=== PATIENT | female | born 1950 | race Caucasian/White ===

== ENCOUNTER 2019-02-19 10:44 | Inpatient (IN) | payer MEDICARE, BC ==
[2019-02-18 18:04] VITALS: Ht 149.9 cm; Wt 65.0 kg
[~2019-02-19] VITALS: Ht 149.9 cm; Wt 65.0 kg
[2019-02-19] VITALS (18 sets, daily range): BP systolic 94–143; BP diastolic 59–79; PULSE 68–90; RESP 13–22
[~2019-02-19 10:44] MED LIST: ACET325T33 PO; FLUO10CA26 PO; LOSA1TAB22 ORAL; METR500T PO
[2019-02-19] MEDS ORDERED: CEFAZOLIN 2 GM/50 ML (PMX) 50 ML IVPB ONE (11:00)
--- NOTE | 2019-02-19 11:56 | PREAC ---
Date/Time of Note Date/Time of Note DATE: 02/19/19 TIME: 11:52 Anesthesia Eval and Record Evaluation Time Pre-Procedure Interview DATE: 02/19/19 TIME: 11:52 Age 69 Sex female NPO: 8 hrs Preoperative diagnosis S/P colostomy, ventral hernia Planned procedure Laparoscopic vs open colostomy takedowm, ventral hernia repair, rigid sigmoidoscopy, possible biologic implantation Past Medical History Past Medical History: Includes Cardio: HTN Psych: Depression Surgery & Anesthesia Issues No known issue Meds Anticoagulation: No Beta Ave within 24 hr: No Reason Beta Ave not given: Pt. not on B-Ave Reported Medications Fluoxetine Hcl* (Prozac*) 10 Mg Capsule, 10 MG PO DAILY, CAP 02/19/19 Losartan-Hydrochlorothiazide (Losartan-HCTZ) 50-12.5 Mg Tab, 2 TAB ORAL DAILY 02/19/19 Meds reviewed: Yes Allergies Coded Allergies: vancomycin (Verified Allergy, Mild, ITCHINESS, 02/19/19) Allergies Reviewed: Yes Labs/Studies Labs Reviewed: Reviewed by anesthesiologist test: N/A Pre-procedure Exam Airway: Adequate mouth opening Mallampati: Mallampati I Teeth: Normal Lung: Normal Heart: Normal ASA Physical Status ASA physical status: 2 Emergency: None Planned Anesthetic General/MAC: ETT Planned Pain Management Parenteral pain med Pre-operative Attestations Prior to commencing anesthesia and surgery, the patient was re-evaluated, there was verification of: *The patient's identity *The results of appropriate recent lab work and preoperative vital signs *The above evaluation not changing prior to induction *Anesthetic plan, risk benefits, alternative and complications discussed with patient/family; questions answered; patient/family understands, accepts and wishes to proceed. LINO MELENDEZ MD Feb 19, 2019 11:56
--- NOTE | 2019-02-19 13:24 | HPN ---
Date/Time of Note Date/Time of Note DATE: 02/19/19 TIME: 13:24 Interval H&P Admission Note Pt. seen H&P reviewed: No system changes MANUEL PISANO MD Feb 19, 2019 13:24
[2019-02-19] MEDS ORDERED: SUCCINYLCHOLINE CHLORIDE 100 MG/5 ML SYG IV ONE (13:32)
[2019-02-19] MEDS ORDERED: LIDOCAINE 2% (SDV) 5 ML INJ ONE (13:32)
[2019-02-19] MEDS ORDERED: GLYCOPYRROLATE 0.4 MG INJ ONE ×2 (13:32→16:07)
[2019-02-19] MEDS ORDERED: NEOSTIGMINE 3 MG/3 ML SYRINGE ONE (13:33)
[2019-02-19] MEDS ORDERED: ROCURONIUM 50 MG INJ ONE ×2 (13:33→15:59)
[2019-02-19] MEDS ORDERED: PROPOFOL 20 ML ONE (13:33)
[2019-02-19] MEDS ORDERED: MEPERIDINE 100 MG INJ ONE (13:33)
[2019-02-19] MEDS ORDERED: BUPIVACAINE 0.25%/EPI (SDV) 30 ML INJ ONE (14:33)
[2019-02-19] MEDS ORDERED: LIDOCAINE 1% (MPF) 30 ML INJ ONE (14:33)
[2019-02-19] MEDS ORDERED: metroNIDAZOLE 500 MG/NS (PMX) 100 ML IVPB ONE (14:40)
[2019-02-19] MEDS ORDERED: MEPERIDINE 25 MG INJ IV PRN (15:00)
[2019-02-19] MEDS ORDERED: HYDROmorphONE 1 MG/5 ML IV SYRINGE IV PRN ×3 (15:00)
[2019-02-19] MEDS ORDERED: ONDANSETRON 4 MG INJ IV PRN ×2 (15:00→17:30)
[2019-02-19] MEDS ORDERED: FENTAnyl 50 MCG/ML VIAL IV PRN ×2 (15:00)
[2019-02-19] MEDS ORDERED: METOCLOPRAMIDE 10 MG INJ IV PRN (15:00)
[2019-02-19] MEDS ORDERED: hydrALAzine 20 MG INJ IV PRN (15:00)
[2019-02-19] MEDS ORDERED: MIDAZOLAM 1 MG/ML 2 ML INJ IV PRN (15:00)
[2019-02-19] MEDS ORDERED: EPHEDrine 25 MG/5 ML SYG IV PRN (15:00)
[2019-02-19] MEDS ORDERED: DIPHENHYDRAMINE 50 MG INJ IV PRN (15:00)
[2019-02-19] MEDS ORDERED: LABETALOL HCL 20MG INJ IV PRN (15:00)
[2019-02-19] MEDS ORDERED: METOCLOPRAMIDE 10 MG INJ ONE (16:08)
[2019-02-19] MEDS ORDERED: ONDANSETRON 4 MG INJ ONE (16:08)
[2019-02-19] MEDS ORDERED: ACETAMINOPHEN 325 MG TAB PO PRN (17:30)
[2019-02-19] MEDS ORDERED: IBUPROFEN 600 MG TAB PO PRN (17:30)
--- NOTE | 2019-02-19 17:48 | OPR ---
Date/Time of Note Date/Time of Note DATE: 02/19/19 TIME: 17:18 Operative Report Free Text/Dictation Preoperative Diagnosis: 1. Colostomy state 2. History of colorectal perforation 3. BMI 29 4. Ventral incisional hernia 5. Parastomal hernia Postoperative Diagnosis: 1. Colostomy state 2. History of colorectal perforation 3. BMI 29 4. Very large ventral incisional hernia 5. Parastomal hernia 6. Stool balls in the rectal vault Operation Performed: 1. Laparoscopic colostomy reversal/takedown 2. Laparoscopic splenic mobilization 3. Laparoscopic low colo-distal rectal anastomosis 4. Laparoscopic partial left colectomy 5. Rigid sigmoidoscopy 6. Laparoscopic partial omentectomy 7. Repair of parastomal hernia 8. Local anesthetic injection, [id number] 9. Laparoscopic bilateral transversus abdominis plane block 10. Manual disimpaction Surgeon: MANUEL PISANO MD Union Representative: Mode Arndt MD Second Union Representative: Fara Huynh NP Anesthesia: general + local + regional Anesthesiologist: MIRTA Delvalle MD Estimated Blood Loss: 100 ml's Specimens: 1. Anastomotic rings 2. Distal colon/colostomy edge 3. Proximal rectum 4. Partial omentum Tubes/Drains: 19 Japanese Quinten Complications: None Pt Condition Post Procedure: stable Disposition: PACU Indications 69-year-old female with multiple comorbidities with history of colorectal perforation requiring colostomy. Patient is now here for colostomy reversal. Risks include but are not limited to bleeding, infection, abscess, seroma, leak, damage to intestines or any intra-abdominal/intrapelvic structures, hernia formation, chronic pain, need for re-operations or further surgeries, PA, stroke, PE, DVT, pneumonia, organ failures, or even . Procedure Description: Patient was brought into the operating room, placed supine on the operating table, SCDs were placed, right arm was tucked, all pressure points were well- padded, preoperative antibiotics administered, and after induction of anesthesia, patient was placed in the lithotomy. San was inserted. Patient was then prepped and draped in usual sterile fashion, and timeout was performed. Incision was made in the right upper quadrant, and using an Optiview port and 5 mm 0 scope abdomen was safely entered and insufflated to 15 mmHg with CO2. Laparoscopy was performed and no injuries were identified. There was adhesions of the omentum to wall and small bowel, small bowel to colostomy. Under direct visualization another 5 mm port was placed in the right lower quadrant a 12 mm port was placed in the right lower lateral quadrant. Patient was placed in Tr endelenburg and left side up. Pelvis was investigated. There was some small bowel adhesions to the pelvic wall. Those were taken down sharply without any injury. The adhesions of small bowel to the colostomy were also taken down. Part of the omentum was also very long skinny and and risk of torsion. Therefore partial omentectomy was performed with LigaSure and that specimen was removed. Rigid sigmoidoscopy was performed and the rectal stump was investigated. The scope and the dilators could not pass a distal point in the rectum. Decision was made to transect this area. Using [employer] 60 blue load stapler the distal rectum was transected and exteriorized and sent to pathology. There was few stool hard balls there which were removed manually. The vaginal cuff and the bladder were easily off of the rectal stump. The rectal stump did not feel thickened. The colostomy edge was cut away from the skin using electrocautery and with gentle dissection the distal colon was from the subcutaneous tissue and then the fascia and peritoneum circumferentially preserving the entire colon. Hemostasis was obtained. Automatic pursestring suture device was used on the healthy distal colon and then unhealthy distal colon was transected and sent to pathology. EEA 29 anvil was placed into the distal colon and secured with the previously placed pursestring suture. Care was taken to put back the EEA anvil and the distal colon back into the abdomen under direct visualization. The fascia of this parastomal hernia was closed with #1 looped PDS sutures x2. At this point the proximal colon was not sufficiently reaching the rectal stump in the pelvis to allow tension free anastamosis. Decision was made to proceed with splenic mobilization. Using sharp dissection and energy device I was able to mobilize the proximal descending colon further from the abdominal wall and the spleen. The omentum was taken off the splenic flexure and the splenic flexure was further mobilized inferiorly. After full mobilization of the splenic flexure we were able to obtain sufficient length for the anastomosis without any tension. EEA stapler was placed through the rectum into the rectal stump under direct visualization. The needle was opened through the rectal stump and the anvil was attached to the needle and full circular stapled anastomosis was created. After removal of the EEA full doughnuts 2 were identified. Proximal colon was clamped and using a rigid sigmoidoscope and air was insufflated into the rectum with distention of the anastomotic site under saline in the pelvis without any air bubbles leaking. Rigid sigmoidoscopy was performed up to 15 cm with healthy stapled anastomosis without any active bleeding. Fluid was suctioned out.Small bowel was ran from terminal ileum to augment of Treitz without any twisting or further scarring. The bowel was laid flat in the abdomen and pelvis. 12 m port site fascia was closed with Endo Close and 0 Vicryl in a [id number] manner. There was complete hemostasis. Ports and CO2 were removed under direct visualization. Wounds were thoroughly irrigated and skin was closed with 4-0 Monocryl subcuticular fashion. Dermabond was applied. The colostomy site wound was closed in multiple layers. Fascial defect was closed with #1 looped PDS suture x2. Subcutaneous tissue was closed in multiple layers with interrupted 2-0 Vicryl suture. There was irrigation with saline and Betadine between each closing layer. Skin was stapled loosely and then 4 x 4 and tape were applied to the surface of this wound. All counts were correct and the end of the operation 2. Patient was extubated and transferred to recovery room in stable condition. MANUEL PISANO MD Feb 19, 2019 17:48
[2019-02-19] MEDS: FENTAnyl 50 MCG/ML VIAL IV PRN ×2 (18:28→18:38)
[2019-02-19] MEDS: SOD CHLORIDE 0.9% 1,000 ML IV SCH (19:35)
--- NOTE | 2019-02-19 19:57 | PAC ---
Date/Time of Note Date/Time of Note DATE: 02/19/19 TIME: 19:56 Post-Anesthesia Notes Post-Anesthesia Note Last documented vital signs Vital Signs Date Temp Pulse Resp B/P (MAP) Pulse Ox O2 O2 Flow FiO2 Time Delivery Rate 02/19/19 74 14 117/79 99 Room Air 19:20 (92) 02/19/19 6.0 17:40 02/19/19 98.0 17:34 Activity: WNL Respiratory function: WNL Cardiovascular function: WNL Mental status: Baseline Pain reasonably controlled: Yes Hydration appropriate: Yes Nausea/Vomiting absent: Yes Comments BT: 98.4 LINO MELENDEZ MD Feb 19, 2019 19:57
[2019-02-19] MEDS: LOSARTAN 50 MG TAB PO SCH (22:56)
[2019-02-19] MEDS: morphine 2 MG INJ IV PRN (23:05)
--- NOTE | 2019-02-19 23:33 | CONS ---
DATE OF ADMISSION: 02/19/2019 DATE OF CONSULTATION: 02/19/2019 TYPE OF CONSULTATION: Postoperative medical. Thank you very much for allowing me to evaluate the above patient who just underwent a colostomy take down. HISTORICAL EVENTS: As you indicated to me earlier this patient in 2018 did have a perforated diverti culum that required surgical intervention and creation of a colostomy. It was today that you elected to perform a colostomy takedown. The delay in this, in part related to her obesity. A large ventra l hernia was also noted, but it was felt that this should be addressed later. She presently is somno lent in the recovery room, complaining of some mild abdominal pain, but has no chest pain, shortness of breath, or vomiting. PAST MEDICAL HISTORY: Includes: 1. History of aortic ectasia. 2. Hypertension. 3. Depression. 4. Left knee pain. 5. History Clostridia difficile colitis. 6. Known diverticulosis. 7. History of rectocele. FAMILY HISTORY: Positive for coronary artery disease and hyperlipidemia. SOCIAL HISTORY: She works for [employer]. She was a former smoker. MEDICATIONS: Prior to admission include: 1. Ibuprofen 2. Losartan 100 mg per day. 3. Hydrochlorothiazide 12.5 per day. 4. Klonopin 0.5 as needed. 5. Lexapro 10 mg. 6. Iron b.i.d. ALLERGIES: MORPHINE. PHYSICAL EXAMINATION: GENERAL: Elderly female in no acute distress. VITAL SIGNS: BP 118/78, pulse 72, respirations were 18. She was afebrile. EYES: Extraocular muscles were full. NOSE, MOUTH, AND THROAT: Normal. NECK: Supple. There was no jugular venous distention, thyroid enlargement or adenopathy. LUNGS: Clear. HEART: Rhythm regular, no murmur. No third or fourth sound. ABDOMEN: Distended, slightly tender. EXTREMITIES: No edema, no calf tenderness. NEUROLOGIC: No lateralizing motor weakness. IMPRESSION: 1. Postoperative colostomy closure, stable. 2. History of hypertension. Will resume BP meds. 3. Will need deep venous thrombosis prophylaxis. SCDs for this evening and Lovenox when you think a ppropriate. 4. Mood disorder. We will explore this tomorrow when she is more alert. I will follow with you. Dictated By: DANIELLE MYERS MD MR/NTS Conf#: [id number] DID#: [id number] CC: MANUEL PISANO MD;*[facility]*
[2019-02-20] MEDS: morphine 2 MG INJ IV PRN ×2 (04:07→08:33)
[2019-02-20 08:25] VITALS: BP 129/95; PULSE 94; RESP 18
[2019-02-20] MEDS: SOD CHLORIDE 0.9% 1,000 ML IV SCH ×2 (08:32→23:05)
[2019-02-20] MEDS: LOSARTAN 50 MG TAB PO SCH (08:33)
[2019-02-20] MEDS: FLUOXETINE 10 MG CAP PO SCH (08:33)
--- NOTE | 2019-02-20 11:13 | CONS ---
Assessment/Plan Assessment/Plan Assessment/Plan (Daily) 1. Postoperative colostomy closure, stable 2. History of hypertension, controlled 3. DVT prophylaxis per surgery 4. Mood disorder, stable Consultation Date/Type/Reason Admit Date/Time Feb 19, 2019 at 17:41 Initial Consult Date Date/Time of Note DATE: 02/20/19 TIME: 11:11 Detailed Summary Respiratory: No cough, No shortness of breath Cardiovascular: No chest pain Gastrointestinal: other (mild bloating and abd discomfort); No vomiting Neurologic: No confusion, No headache Exam/Review of Systems Exam Vitals Vital Signs Date Temp Pulse Resp B/P (MAP) Pulse Ox O2 O2 Flow FiO2 Time Delivery Rate 02/20/19 99.8 94 18 129/95 97 08:25 (106) 02/19/19 Room Air 23:15 02/19/19 6.0 17:40 Intake and Output 02/19/19 02/19/19 02/20/19 1515:00 23:00 07:00 IntakeIntake Total 2100 ml 1180 ml OutputOutput Total 350 ml 970 ml BalanceBalance 1750 ml 210 ml Neck: No jvd Respiratory: clear to auscultation Cardiovascular: regular rate and rhythm Gastrointestinal: distended (sl tend) Results Result Diagram: 02/20/19 0422 02/20/19 0422 Results 24hrs Laboratory Tests Test 02/20/19 04:22 02/20/19 08:04 White Blood Count 11.0 H Red Blood Count 4.01 L Hemoglobin 12.3 Hematocrit 36.8 L Mean Corpuscular Volume 91.8 Mean Corpuscular Hemoglobin 30.7 Mean Corpuscular Hemoglobin Concent 33.4 Red Cell Distribution Width 13.5 Platelet Count 318 Mean Platelet Volume 9.5 Immature Granulocytes % 0.300 Neutrophils % 75.6 Lymphocytes % 14.9 L Monocytes % 8.8 Eosinophils % 0.2 Basophils % 0.2 Nucleated Red Blood Cells % 0.0 Immature Granulocytes # 0.030 Neutrophils # 8.3 H Lymphocytes # 1.6 Monocytes # 1.0 H Eosinophils # 0.0 Basophils # 0.0 Nucleated Red Blood Cells # 0.0 Sodium Level 137 Potassium Level 3.4 L Chloride Level 104 Carbon Dioxide Level 26 Anion Gap 7 Blood Urea Nitrogen 12 Creatinine 0.67 Est Glomerular Filtrat Rate mL/min > 60 Glucose Level 122 Calcium Level 8.4 Phosphorus Level 3.3 Magnesium Level 1.8 Lab Scanned Report REFERENCE LAB Medications Medication Current Medications Morphine Sulfate (morphine) 2 mg Q2H PRN IV breakthrough pain Last administered on 02/20/19 08:33; Admin Dose 2 MG; Start 02/19/19 at 17:30 Acetaminophen/ Hydrocodone Bitart ([place] (5/325)) 1 tab Q6H PRN PO PAIN LEVEL 6-10; Start 02/19/19 at 17:30 Acetaminophen (Tylenol Tab) 650 mg Q6H PRN PO MILD PAIN(1-3)OR ELEVATED TEMP; Start 02/19/19 at 17:30 Ibuprofen (Motrin) 600 mg Q6H PRN PO PAIN LEVEL 1-5; Start 02/19/19 at 17:30 Ondansetron HCl (Zofran Inj) 4 mg Q6H PRN IV NAUSEA AND/OR VOMITING; Start 02/19/19 at 17:30 Fluoxetine HCl (Prozac) 10 mg DAILY PO Last administered on 02/20/19 08:33; Admin Dose 10 MG; Start 02/20/19 at 09:00 Losartan Potassium (Cozaar) 50 mg DAILY PO Last administered on 02/20/19 08:33; Admin Dose 50 MG; Start 02/19/19 at 23:00 Sodium Chloride 1,000 ml @ 70 mls/hr [id number] IV Last administered on 02/20/19 08:32; Admin Dose 70 MLS/HR; Start 02/19/19 at 18:00 DANIELLE MYERS MD Feb 20, 2019 11:13
[2019-02-20] MEDS: POTASSIUM CHLORIDE (SR) 20 MEQ TAB PO SCH ×2 (12:20→20:48)
[2019-02-20 14:46] VITALS: BP 146/76; PULSE 85; RESP 18
[2019-02-20] MEDS: HYDROCODONE/APAP (5/325) TAB PO PRN ×2 (15:37→23:07)
[2019-02-20 21:12] VITALS: BP 136/79; PULSE 90; RESP 20
--- NOTE | 2019-02-20 23:50 | PN ---
Date/Time of Note Date/Time of Note DATE: 02/20/19 TIME: 23:49 Assessment/Plan Lines/Catheters IV Catheter Type (from Nrsg): Peripheral IV Assessment/Plan Chief Complaint/Hosp Course 1. Abdominal pain s/p lap colostomy takedown 02/19 -ice -pain control -IS 2. Paralytic ileus -chew gum -oob/ambulate -minimize narcotics 3. BMI 29 -eventual diet optimization -eventual exercise 4. HTN -diet/med optimization -weight loss encouraged 5. Hypokalemia -replete 6. Mild leukocytosis, reactive -monitor 7. DVT prophylaxis with serosang mary output -scds -oob/ambulate -hold off anticoagulation for now Thank you, Subjective 24 Hr Interval Summary Min pain. No flatus or bm. Nausea but no vomiting. Clears. No cp/sob. No cough. No sz. No bleeding. No dysuria. San removed this am and able to urinate well. Labs noted. Low grade temp earlier. No chills. Ambulated minimally today. Not using IS correctly. Exam/Review of Systems Vital Signs Vitals Vital Signs Date Temp Pulse Resp B/P (MAP) Pulse Ox O2 O2 Flow FiO2 Time Delivery Rate 02/20/19 98.5 90 20 136/79 96 21:12 (98) 02/19/19 Room Air 23:15 02/19/19 6.0 17:40 Intake and Output 02/20/19 02/20/19 02/21/19 1515:00 23:00 07:00 IntakeIntake Total 900 ml 630 ml OutputOutput Total 350 ml BalanceBalance 550 ml 630 ml Exam Constitutional: alert, oriented, obese; No distress Psych: nl mood/affect Head: normocephalic, atraumatic Eyes: nl conjunctiva, EOMI, PERRL; No icteric ENMT: nl external ears & nose, nl lips & teeth, mucosa pink and moist Neck: supple, non-tender; No jvd Respiratory: normal air movement; No congested cough, No labored breathing, No wheezing Cardiovascular: regular rate and rhythm; No edema Gastrointestinal: soft, distended, tender, other (MARY serosang; LLQ wound with dressing;); No rebound or guarding Musculoskeletal: nl extremities to inspection; No joint tenderness Extremities: normal pulses; No calf tenderness, No edema Neurological: nl mental status, nl speech, nl strength Skin: nl turgor; No rash or lesions, No diaphoresis Lymph: nl lymph nodes Results Result Diagram: 02/20/1942102/20/19 042 MANUEL PISANO MD Feb 20, 2019 23:50
[2019-02-21 02:43] VITALS: BP 150/86; PULSE 88; RESP 18
[2019-02-21] MEDS: morphine 2 MG INJ IV PRN (05:00)
[2019-02-21 07:37] VITALS: BP 135/86; PULSE 87; RESP 16
[2019-02-21] MEDS: FLUOXETINE 10 MG CAP PO SCH (09:24)
[2019-02-21] MEDS: LOSARTAN 50 MG TAB PO SCH ×2 (09:25→20:16)
[2019-02-21] MEDS: ENOXAPARIN 40 MG/0.4 ML SYG SC SCH (11:00)
--- NOTE | 2019-02-21 11:05 | CONS ---
Assessment/Plan Assessment/Plan Assessment/Plan (Daily) 1. Post op colostomy closure, with unchanged distension and pain. 2. BP is elevated, meds adjusted 3. DVT prophylaxis, Lovenox if ok with surgery 4. P is low, will replete 5. Dizziness with standing without orthostatic changes, will observe Consultation Date/Type/Reason Admit Date/Time Feb 19, 2019 at 17:41 Initial Consult Date Date/Time of Note DATE: 02/21/19 TIME: 10:59 Detailed Summary Respiratory: No cough, No pleuritic pain, No shortness of breath Cardiovascular: lightheadedness (when standing and dizzy); No chest pain Gastrointestinal: pain (moderate and nausea, no flatus or bm yet) Genitourinary: no complaints Neurologic: No headache Exam/Review of Systems Exam Vitals Vital Signs Date Temp Pulse Resp B/P (MAP) Pulse Ox O2 O2 Flow FiO2 Time Delivery Rate 02/21/19 98.3 87 16 135/86 94 07:37 (102) 02/19/19 Room Air 23:15 02/19/19 6.0 17:40 Intake and Output 02/20/19 02/20/19 02/21/19 1515:00 23:00 07:00 IntakeIntake Total 900 ml 630 ml 1010 ml OutputOutput Total 350 ml 25 ml BalanceBalance 550 ml 605 ml 1010 ml Neck: No jvd Respiratory: clear to auscultation Cardiovascular: regular rate and rhythm Gastrointestinal: distended (rare bs and gen tender (1-2+) Extremities: No edema, No tenderness Results Result Diagram: 02/21/19 0427 02/21/19 0427 Results 24hrs Laboratory Tests Test 02/21/19 04:27 White Blood Count 13.2 H Red Blood Count 4.56 Hemoglobin 13.9 Hematocrit 41.5 Mean Corpuscular Volume 91.0 Mean Corpuscular Hemoglobin 30.5 Mean Corpuscular Hemoglobin Concent 33.5 Red Cell Distribution Width 13.2 Platelet Count 333 Mean Platelet Volume 9.4 Immature Granulocytes % 0.500 H Neutrophils % 84.3 H Lymphocytes % 8.3 L Monocytes % 6.2 Eosinophils % 0.5 Basophils % 0.2 Nucleated Red Blood Cells % 0.0 Immature Granulocytes # 0.070 H Neutrophils # 11.1 H Lymphocytes # 1.1 Monocytes # 0.8 Eosinophils # 0.1 Basophils # 0.0 Nucleated Red Blood Cells # 0.0 Sodium Level 137 Potassium Level 3.6 Chloride Level 102 Carbon Dioxide Level 27 Anion Gap 8 Blood Urea Nitrogen 6 L Creatinine 0.55 Est Glomerular Filtrat Rate mL/min > 60 Glucose Level 135 Calcium Level 9.1 Phosphorus Level 1.7 #L Magnesium Level 2.1 Medications Medication Current Medications Morphine Sulfate (morphine) 2 mg Q2H PRN IV breakthrough pain Last administered on 02/21/19 05:00; Admin Dose 2 MG; Start 02/19/19 at 17:30 Acetaminophen/ Hydrocodone Bitart ([place] (5/325)) 1 tab Q6H PRN PO PAIN LEVEL 6-10 Last administered on 02/20/19 23:07; Admin Dose 1 TAB; Start 02/19/19 at 17:30 Acetaminophen (Tylenol Tab) 650 mg Q6H PRN PO MILD PAIN(1-3)OR ELEVATED TEMP; Start 02/19/19 at 17:30 Ibuprofen (Motrin) 600 mg Q6H PRN PO PAIN LEVEL 1-5; Start 02/19/19 at 17:30 Ondansetron HCl (Zofran Inj) 4 mg Q6H PRN IV NAUSEA AND/OR VOMITING Last administered on 02/21/19 05:00; Admin Dose 4 MG; Start 02/19/19 at 17:30 Fluoxetine HCl (Prozac) 10 mg DAILY PO Last administered on 02/21/19 09:24; Admin Dose 10 MG; Start 02/20/19 at 09:00 Losartan Potassium (Cozaar) 50 mg DAILY PO Last administered on 02/21/19 09:25; Admin Dose 50 MG; Start 02/19/19 at 23:00 Sodium Chloride 1,000 ml @ 40 mls/hr Q24H IV Last administered on 02/20/19 23:05; Admin Dose 40 MLS/HR; Start 02/19/19 at 18:00 Metoclopramide HCl (Reglan) 5 mg Q6 IV ; Start 02/21/19 at 12:00 DANIELLE MYERS MD Feb 21, 2019 11:05
[2019-02-21] MEDS ORDERED: POTASSIUM PHOSPHATE 20 MEQ in SOD CHLORIDE 0.9% 250 ML IVPB ONE (11:45)
[2019-02-21] MEDS: METOCLOPRAMIDE 10 MG INJ IV SCH ×2 (12:41→18:22)
[2019-02-21 14:05] VITALS: BP 155/85; PULSE 88; PULSE 91; RESP 18
[2019-02-21] MEDS: HYDROCODONE/APAP (5/325) TAB PO PRN ×2 (14:14→21:26)
[2019-02-21 20:01] VITALS: BP 114/76; PULSE 87; RESP 18
--- NOTE | 2019-02-21 21:08 | PN ---
Date/Time of Note Date/Time of Note DATE: 02/21/19 TIME: 21:06 Assessment/Plan Lines/Catheters IV Catheter Type (from Nrsg): Peripheral IV San in Place (from Nrs): No Assessment/Plan Chief Complaint/Hosp Course 1. Abdominal pain s/p lap colostomy takedown 02/19 -ice -pain control -IS 2. Paralytic ileus, ? slowly improving -chew gum -oob/ambulate -minimize narcotics 3. BMI 29 -eventual diet optimization -eventual exercise 4. HTN -diet/med optimization -weight loss encouraged 5. Hypokalemia -replete 6. Mild leukocytosis, reactive -monitor 7. DVT prophylaxis on hold with serosang mary output -scds -oob/ambulate -hold off anticoagulation for now Thank you, Subjective 24 Hr Interval Summary Min pain. Min flatus today. No bm. Mild increase in wbc. Nausea but no vomiting. Clears. No cp/sob. No cough. No sz. No bleeding. No dysuria. Labs noted. No fevers, nor chills. Exam/Review of Systems Vital Signs Vitals Vital Signs Date Temp Pulse Resp B/P (MAP) Pulse Ox O2 O2 Flow FiO2 Time Delivery Rate 02/21/19 98.0 87 18 114/76 100 Room Air 20:01 (89) 02/19/19 6.0 17:40 Intake and Output 02/20/19 02/20/19 02/21/19 1515:00 23:00 07:00 IntakeIntake Total 900 ml 630 ml 1010 ml OutputOutput Total 350 ml 25 ml BalanceBalance 550 ml 605 ml 1010 ml Exam Free Text/Dictation Constitutional: alert, oriented, obese; No distress Psych: nl mood/affect Head: normocephalic, atraumatic Eyes: nl conjunctiva, EOMI, PERRL; No icteric ENMT: nl external ears & nose, nl lips & teeth, mucosa pink and moist Neck: supple, non-tender; No jvd Respiratory: normal air movement; No congested cough, No labored breathing, No wheezing Cardiovascular: regular rate and rhythm; No edema Gastrointestinal: soft, distended, tender, other (MARY serosang; LLQ wound with dressing;); No rebound or guarding Musculoskeletal: nl extremities to inspection; No joint tenderness Extremities: normal pulses; No calf tenderness, No edema Neurological: nl mental status, nl speech, nl strength Skin: nl turgor; No rash or lesions, No diaphoresis Lymph: nl lymph nodes Results Result Diagram: 02/21/19 0427 02/21/19 0427 MANUEL PISANO MD Feb 21, 2019 21:08
[2019-02-22] MEDS: METOCLOPRAMIDE 10 MG INJ IV SCH ×4 (00:03→17:39)
[2019-02-22 01:48] VITALS: BP 123/78; PULSE 85; RESP 16
[2019-02-22] MEDS: morphine 2 MG INJ IV PRN ×5 (04:59→22:30)
[2019-02-22 08:34] VITALS: BP 113/63
[2019-02-22] MEDS: LOSARTAN 50 MG TAB PO SCH ×2 (08:36→21:00)
[2019-02-22] MEDS: FLUOXETINE 10 MG CAP PO SCH (08:36)
[2019-02-22] MEDS: ENOXAPARIN 40 MG/0.4 ML SYG SC SCH (08:46)
--- NOTE | 2019-02-22 08:46 | CONS ---
Assessment/Plan Assessment/Plan Assessment/Plan (Daily) 1. Post op colostomy closure, doing well, with return of bowel fx, doubt c diff but has hx of the same, C diff toxin pending 2. BP controlled 3. Labs rev, on liquid diet 4. Will be sure PT is ordered Consultation Date/Type/Reason Admit Date/Time Feb 19, 2019 at 17:41 Initial Consult Date Date/Time of Note DATE: 02/22/19 TIME: 08:43 Detailed Summary Respiratory: No cough, No shortness of breath Cardiovascular: No chest pain, No lightheadedness Gastrointestinal: other (frequent stools and less bloated and abd discomfort) Genitourinary: no complaints Exam/Review of Systems Exam Vitals Vital Signs Date Temp Pulse Resp B/P (MAP) Pulse Ox O2 O2 Flow FiO2 Time Delivery Rate 02/22/19 113/63 08:34 (80) 02/22/19 98.0 85 16 100 Room Air 01:48 02/19/19 6.0 17:40 Intake and Output 02/21/19 02/21/19 02/22/19 1515:00 23:00 07:00 IntakeIntake Total 760 ml 495 ml OutputOutput Total 165 ml 170 ml 160 ml BalanceBalance 595 ml 325 ml -160 ml Neck: No jvd Respiratory: clear to auscultation Cardiovascular: regular rate and rhythm Gastrointestinal: soft, other (distension is less and less tender) Results Result Diagram: 02/22/19 0428 02/22/19 0428 Results 24hrs Laboratory Tests Test 02/22/19 04:28 White Blood Count 12.6 H Red Blood Count 4.23 Hemoglobin 13.2 Hematocrit 38.1 Mean Corpuscular Volume 90.1 Mean Corpuscular Hemoglobin 31.2 Mean Corpuscular Hemoglobin Concent 34.6 Red Cell Distribution Width 13.2 Platelet Count 356 Mean Platelet Volume 9.1 Immature Granulocytes % 0.500 H Neutrophils % 78.1 H Lymphocytes % 10.3 L Monocytes % 8.6 Eosinophils % 2.1 Basophils % 0.4 Nucleated Red Blood Cells % 0.0 Immature Granulocytes # 0.060 H Neutrophils # 9.9 H Lymphocytes # 1.3 Monocytes # 1.1 H Eosinophils # 0.3 Basophils # 0.1 Nucleated Red Blood Cells # 0.0 Sodium Level 139 Potassium Level 3.9 Chloride Level 105 Carbon Dioxide Level 26 Anion Gap 8 Blood Urea Nitrogen 11 Creatinine 0.63 Est Glomerular Filtrat Rate mL/min > 60 Glucose Level 119 Calcium Level 8.5 Total Bilirubin 0.6 Direct Bilirubin 0.00 Indirect Bilirubin 0.6 Aspartate Amino Transf (AST/SGOT) 35 Alanine Aminotransferase (ALT/SGPT) 30 Alkaline Phosphatase 82 Total Protein 6.1 Albumin 3.2 L Globulin 2.90 Albumin/Globulin Ratio 1.10 Medications Medication Current Medications Morphine Sulfate (morphine) 2 mg Q2H PRN IV breakthrough pain Last administered on 02/22/19 04:59; Admin Dose 2 MG; Start 02/19/19 at 17:30 Acetaminophen/ Hydrocodone Bitart ([place] (5/325)) 1 tab Q6H PRN PO PAIN LEVEL 6-10 Last administered on 02/21/19 21:26; Admin Dose 1 TAB; Start 02/19/19 at 17:30 Acetaminophen (Tylenol Tab) 650 mg Q6H PRN PO MILD PAIN(1-3)OR ELEVATED TEMP; Start 02/19/19 at 17:30 Ibuprofen (Motrin) 600 mg Q6H PRN PO PAIN LEVEL 1-5; Start 02/19/19 at 17:30 Ondansetron HCl (Zofran Inj) 4 mg Q6H PRN IV NAUSEA AND/OR VOMITING Last administered on 02/21/19 05:00; Admin Dose 4 MG; Start 02/19/19 at 17:30 Fluoxetine HCl (Prozac) 10 mg DAILY PO Last administered on 02/21/19 09:24; Admin Dose 10 MG; Start 02/20/19 at 09:00 Metoclopramide HCl (Reglan) 5 mg Q6 IV Last administered on 02/22/19at 06:16; Admin Dose 5 MG; Start 02/21/19 at 12:00 Losartan Potassium (Cozaar) 50 mg BID PO ; Start 02/21/19 at 21:00 Clonidine (Catapres) 0.1 mg TID PO Last administered on 02/21/19at 12:41; Admin Dose 0.1 MG; Start 02/21/19 at 13:00 Enoxaparin Sodium (Lovenox) 40 mg DAILY SC ; Start 02/21/19 at 11:00 DANIELLE MYERS MD Feb 22, 2019 08:46
[2019-02-22 09:20] VITALS: BP 113/63; PULSE 80; RESP 18
--- NOTE | 2019-02-22 12:41 | PN ---
Date/Time of Note Date/Time of Note DATE: 02/22/19 TIME: 12:37 Assessment/Plan Lines/Catheters IV Catheter Type (from Nrsg): Saline Lock San in Place (from Nrs): No Assessment/Plan Chief Complaint/Hosp Course 1. Abdominal pain s/p lap colostomy takedown 02/19. Improving -ice -pain control -IS 2. Paralytic ileus, now with multiple bouts of diarrhea -oob/ambulate -minimize narcotics -cdiff pending (doubt) 3. BMI 29 -eventual diet optimization -eventual exercise 4. HTN -diet/med optimization -weight loss encouraged 5. Hypoalbuminemia -nutritional optimization 6. Mild leukocytosis, probably reactive -monitor 7. DVT prophylaxis -lovenox -scds -oob/ambulate 8. Large ventral incisional hernia -eventual open repair with mesh Thank you, Subjective 24 Hr Interval Summary Min pain. Flatus and multiple loose stools. CDiff pending. WBC down to 12. Nausea but no vomiting. Fulls. No cp/sob. No cough. No sz. No bleeding. No dysuria. Labs noted. No fevers, nor chills. Exam/Review of Systems Vital Signs Vitals Vital Signs Date Temp Pulse Resp B/P (MAP) Pulse Ox O2 O2 Flow FiO2 Time Delivery Rate 02/22/19 98.0 80 18 113/63 96 Room Air 09:20 (80) 02/19/19 6.0 17:40 Intake and Output 02/21/19 02/21/19 02/22/19 1515:00 23:00 07:00 IntakeIntake Total 760 ml 495 ml OutputOutput Total 165 ml 170 ml 160 ml BalanceBalance 595 ml 325 ml -160 ml Exam Free Text/Dictation Constitutional: alert, oriented, obese; No distress Psych: nl mood/affect Head: normocephalic, atraumatic Eyes: nl conjunctiva, EOMI, PERRL; No icteric ENMT: nl external ears & nose, nl lips & teeth, mucosa pink and moist Neck: supple, non-tender; No jvd Respiratory: normal air movement; No congested cough, No labored breathing, No wheezing Cardiovascular: regular rate and rhythm; No edema Gastrointestinal: soft, distended (improving), min tender, other (SHEILA serosang; LLQ wound with dressing;); No rebound or guarding Musculoskeletal: nl extremities to inspection; No joint tenderness Extremities: normal pulses; No calf tenderness, No edema Neurological: nl mental status, nl speech, nl strength Skin: nl turgor; No rash or lesions, No diaphoresis Lymph: nl lymph nodes Results Result Diagram: 02/22/19 0428 02/22/19 0428 MANUEL PISANO MD Feb 22, 2019 12:41
[2019-02-22 12:53] VITALS: BP 114/63; PULSE 81
[2019-02-22] MEDS: HYDROCODONE/APAP (5/325) TAB PO PRN (14:40)
[2019-02-22] MEDS: metroNIDAZOLE 500 MG TAB PO SCH ×2 (14:44→21:54)
[2019-02-22 19:42] VITALS: BP 132/71; PULSE 86; RESP 18
[2019-02-23] MEDS: METOCLOPRAMIDE 10 MG INJ IV SCH ×4 (00:47→17:46)
[2019-02-23 01:37] VITALS: BP 112/60; PULSE 87; RESP 16
[2019-02-23] MEDS: metroNIDAZOLE 500 MG TAB PO SCH ×5 (05:53→20:23)
--- NOTE | 2019-02-23 07:04 | CONS ---
Assessment/Plan Assessment/Plan Hospital Course (Demo Recall) 1) probable c.dif colitis pt seems to be responding (albeit a bit too quickly) to oral flagyl no increase in her nausea with it if necessary pt can receive po vanco will get KUB check IgG level in a.m. 2) s/p colostomy takedown surgical site ok 3) HTN Consultation Date/Type/Reason Admit Date/Time Feb 19, 2019 at 17:41 Date of Consultation: Feb 23, 2019 Type of Consult ID Date/Time of Note DATE: 02/23/19 TIME: 06:56 Hx of Present Illness pt was admitted for colostomy takedown on 02/19 she did not get antibiotics [employer] but got ancef prophylaxis for her surgery she has been having nausea since surgery as well as abd pain she had not BM's till early 02/22 then she got alot of loose stools with mucus that was c.dif toxin positive she denies dysuria, SOB, cough, dysphagia, abd cramping no further stools over the last 12 hours but she is still passing gas hx of c.dif in past 5 years ago treated with flagyl and IV vanco with IV vanco she got itchy but no rash and several years later due to recurrent diarrhea she got po vanco without a problem Past Medical History HTN, C.dif, colostomy, diverticulosis, depression, perfed diverticulum Home Meds Reported Medications Fluoxetine Hcl* (Prozac*) 10 Mg Capsule, 10 MG PO DAILY, CAP 02/19/19 Losartan-Hydrochlorothiazide (Losartan-HCTZ) 50-12.5 Mg Tab, 2 TAB ORAL DAILY 02/19/19 Medications Current Medications Morphine Sulfate (morphine) 2 mg Q2H PRN IV breakthrough pain Last administered on 02/22/19at 22:30; Admin Dose 2 MG; Start 02/19/19 at 17:30 Acetaminophen/ Hydrocodone Bitart ([place] (5/325)) 1 tab Q6H PRN PO PAIN LEVEL 6-10 Last administered on 02/22/19at 14:40; Admin Dose 1 TAB; Start 02/19/19 at 17:30 Acetaminophen (Tylenol Tab) 650 mg Q6H PRN PO MILD PAIN(1-3)OR ELEVATED TEMP; Start 02/19/19 at 17:30 Ibuprofen (Motrin) 600 mg Q6H PRN PO PAIN LEVEL 1-5; Start 02/19/19 at 17:30 Ondansetron HCl (Zofran Inj) 4 mg Q6H PRN IV NAUSEA AND/OR VOMITING Last administered on 02/21/19at 05:00; Admin Dose 4 MG; Start 02/19/19 at 17:30 Fluoxetine HCl (Prozac) 10 mg DAILY PO Last administered on 02/22/19 08:36; Admin Dose 10 MG; Start 02/20/19 at 09:00 Metoclopramide HCl (Reglan) 5 mg Q6 IV Last administered on 02/23/19at 05:53; Admin Dose 5 MG; Start 02/21/19 at 12:00 Losartan Potassium (Cozaar) 50 mg BID PO Last administered on 02/22/19 08:36; Admin Dose 50 MG; Start 02/21/19 at 21:00 Clonidine (Catapres) 0.1 mg TID PO Last administered on 02/21/19at 12:41; Admin Dose 0.1 MG; Start 02/21/19 at 13:00 Enoxaparin Sodium (Lovenox) 40 mg DAILY SC ; Start 02/23/19 at 09:00 Metronidazole (Flagyl) 500 mg Q8 PO Last administered on 02/23/19 05:53; Admin Dose 500 MG; Start 02/22/19 at 14:20 Allergies: Coded Allergies: vancomycin (Verified Allergy, Mild, ITCHINESS, 02/19/19) Past Surgical History TKR, perfed diverticulum requiring colostomy Social History Smoking Status: Current every day smoker Exam/Review of Systems Exam Vitals Vital Signs Date Temp Pulse Resp B/P (MAP) Pulse Ox O2 O2 Flow FiO2 Time Delivery Rate 02/23/19 98.5 87 16 112/60 99 Room Air 01:37 (77) 02/19/19 6.0 17:40 Intake and Output 02/22/19 02/22/19 02/23/19 1515:00 23:00 07:00 IntakeIntake Total 480 ml 460 ml 300 ml OutputOutput Total 70 ml 46 ml 35 ml BalanceBalance 410 ml 414 ml 265 ml Constitutional: alert, oriented Eyes: nl sclera ENMT: mucosa pink and moist Respiratory: clear to auscultation Cardiovascular: regular rate and rhythm Gastrointestinal: soft, tender (diffusely tender, surgical site shows no redness) Results Result Diagram: 02/23/19 0427 02/23/19 0427 Results 24hrs Laboratory Tests Test 02/23/19 04:27 White Blood Count 9.7 # Red Blood Count 3.88 L Hemoglobin 11.9 L Hematocrit 35.5 L Mean Corpuscular Volume 91.5 Mean Corpuscular Hemoglobin 30.7 Mean Corpuscular Hemoglobin Concent 33.5 Red Cell Distribution Width 13.3 Platelet Count 322 Mean Platelet Volume 9.3 Immature Granulocytes % 0.300 Neutrophils % 66.3 Lymphocytes % 16.8 Monocytes % 9.4 Eosinophils % 6.8 Basophils % 0.4 Nucleated Red Blood Cells % 0.0 Immature Granulocytes # 0.030 Neutrophils # 6.4 Lymphocytes # 1.6 Monocytes # 0.9 Eosinophils # 0.7 H Basophils # 0.0 Nucleated Red Blood Cells # 0.0 Sodium Level 137 Potassium Level 4.1 Chloride Level 106 Carbon Dioxide Level 25 Anion Gap 6 Blood Urea Nitrogen 14 Creatinine 0.64 Est Glomerular Filtrat Rate mL/min > 60 Glucose Level 92 Calcium Level 8.1 L Phosphorus Level 2.4 L Magnesium Level 2.1 Medications Medication Current Medications Morphine Sulfate (morphine) 2 mg Q2H PRN IV breakthrough pain Last administered on 02/22/19at 22:30; Admin Dose 2 MG; Start 02/19/19 at 17:30 Acetaminophen/ Hydrocodone Bitart ([place] (5/325)) 1 tab Q6H PRN PO PAIN LEVEL 6-10 Last administered on 02/22/19at 14:40; Admin Dose 1 TAB; Start 02/19/19 at 17:30 Acetaminophen (Tylenol Tab) 650 mg Q6H PRN PO MILD PAIN(1-3)OR ELEVATED TEMP; Start 02/19/19 at 17:30 Ibuprofen (Motrin) 600 mg Q6H PRN PO PAIN LEVEL 1-5; Start 02/19/19 at 17:30 Ondansetron HCl (Zofran Inj) 4 mg Q6H PRN IV NAUSEA AND/OR VOMITING Last administered on 02/21/19at 05:00; Admin Dose 4 MG; Start 02/19/19 at 17:30 Fluoxetine HCl (Prozac) 10 mg DAILY PO Last administered on 02/22/19at 08:36; Admin Dose 10 MG; Start 02/20/19 at 09:00 Metoclopramide HCl (Reglan) 5 mg Q6 IV Last administered on 02/23/19 05:53; Admin Dose 5 MG; Start 02/21/19 at 12:00 Losartan Potassium (Cozaar) 50 mg BID PO Last administered on 02/22/19at 08:36; Admin Dose 50 MG; Start 02/21/19 at 21:00 Clonidine (Catapres) 0.1 mg TID PO Last administered on 02/21/19at 12:41; Admin Dose 0.1 MG; Start 02/21/19 at 13:00 Enoxaparin Sodium (Lovenox) 40 mg DAILY SC ; Start 02/23/19 at 09:00 Metronidazole (Flagyl) 500 mg Q8 PO Last administered on 02/23/19at 05:53; Admin Dose 500 MG; Start 02/22/19 at 14:20 STEVE CHOU MD Feb 23, 2019 07:04
[2019-02-23 07:22] VITALS: BP 123/68; PULSE 82; RESP 18
[2019-02-23] MEDS: LOSARTAN 50 MG TAB PO SCH ×2 (08:05→20:23)
[2019-02-23] MEDS: HYDROCODONE/APAP (5/325) TAB PO PRN ×2 (08:05→15:31)
[2019-02-23] MEDS: FLUOXETINE 10 MG CAP PO SCH (08:06)
[2019-02-23] MEDS: ENOXAPARIN 40 MG/0.4 ML SYG SC SCH (08:09)
--- NOTE | 2019-02-23 08:38 | CONS ---
Assessment/Plan Assessment/Plan Assessment/Plan (Daily) 1. Post op colostomy closure 2. C diff colitis, ID eval apprec 3. BP is controlled 4. Sl low P, will replete 5. Needs to get out of bed Consultation Date/Type/Reason Admit Date/Time Feb 19, 2019 at 17:41 Initial Consult Date Date/Time of Note DATE: 02/23/19 TIME: 08:36 Detailed Summary Respiratory: No cough, No shortness of breath Cardiovascular: No chest pain, No orthopenea Gastrointestinal: other (less bloating and nno bm yet today, much flatus) Genitourinary: no complaints Exam/Review of Systems Exam Vitals Vital Signs Date Temp Pulse Resp B/P (MAP) Pulse Ox O2 O2 Flow FiO2 Time Delivery Rate 02/23/19 98.8 82 18 123/68 94 Room Air 07:22 (86) 02/19/19 6.0 17:40 Intake and Output 02/22/19 02/22/19 02/23/19 1515:00 23:00 07:00 IntakeIntake Total 480 ml 460 ml 300 ml OutputOutput Total 70 ml 46 ml 35 ml BalanceBalance 410 ml 414 ml 265 ml Neck: No jvd Respiratory: clear to auscultation Cardiovascular: regular rate and rhythm Gastrointestinal: soft, distended (is less); No hepatomegaly, No splenomegaly Extremities: No edema Results Result Diagram: 02/23/197 02/23/19 0427 Results 24hrs Laboratory Tests Test 02/23/19 04:27 White Blood Count 9.7 # Red Blood Count 3.88 L Hemoglobin 11.9 L Hematocrit 35.5 L Mean Corpuscular Volume 91.5 Mean Corpuscular Hemoglobin 30.7 Mean Corpuscular Hemoglobin Concent 33.5 Red Cell Distribution Width 13.3 Platelet Count 322 Mean Platelet Volume 9.3 Immature Granulocytes % 0.300 Neutrophils % 66.3 Lymphocytes % 16.8 Monocytes % 9.4 Eosinophils % 6.8 Basophils % 0.4 Nucleated Red Blood Cells % 0.0 Immature Granulocytes # 0.030 Neutrophils # 6.4 Lymphocytes # 1.6 Monocytes # 0.9 Eosinophils # 0.7 H Basophils # 0.0 Nucleated Red Blood Cells # 0.0 Sodium Level 137 Potassium Level 4.1 Chloride Level 106 Carbon Dioxide Level 25 Anion Gap 6 Blood Urea Nitrogen 14 Creatinine 0.64 Est Glomerular Filtrat Rate mL/min > 60 Glucose Level 92 Calcium Level 8.1 L Phosphorus Level 2.4 L Magnesium Level 2.1 Medications Medication Current Medications Morphine Sulfate (morphine) 2 mg Q2H PRN IV breakthrough pain Last administered on 02/22/19 22:30; Admin Dose 2 MG; Start 02/19/19 at 17:30 Acetaminophen/ Hydrocodone Bitart ([place] (5/325)) 1 tab Q6H PRN PO PAIN LEVEL 6-10 Last administered on 02/23/19 08:05; Admin Dose 1 TAB; Start 02/19/19 at 17:30 Acetaminophen (Tylenol Tab) 650 mg Q6H PRN PO MILD PAIN(1-3)OR ELEVATED TEMP; Start 02/19/19 at 17:30 Ibuprofen (Motrin) 600 mg Q6H PRN PO PAIN LEVEL 1-5; Start 02/19/19 at 17:30 Ondansetron HCl (Zofran Inj) 4 mg Q6H PRN IV NAUSEA AND/OR VOMITING Last admi nistered on 02/21/19 05:00; Admin Dose 4 MG; Start 02/19/19 at 17:30 Fluoxetine HCl (Prozac) 10 mg DAILY PO Last administered on 02/23/19 08:06; Admin Dose 10 MG; Start 02/20/19 at 09:00 Metoclopramide HCl (Reglan) 5 mg Q6 IV Last administered on 02/23/19 05:53; Admin Dose 5 MG; Start 02/21/19 at 12:00 Losartan Potassium (Cozaar) 50 mg BID PO Last administered on 02/23/19 08:05; Admin Dose 50 MG; Start 02/21/19 at 21:00 Clonidine (Catapres) 0.1 mg TID PO Last administered on 02/21/19 12:41; Admin Dose 0.1 MG; Start 02/21/19 at 13:00 Enoxaparin Sodium (Lovenox) 40 mg DAILY SC Last administered on 02/23/19 08:09; Admin Dose 40 MG; Start 02/23/19 at 09:00 Metronidazole (Flagyl) 500 mg QID PO ; Start 02/23/19 at 09:00 DANIELLE MYERS MD Feb 23, 2019 08:38
[2019-02-23] MEDS ORDERED: POTASSIUM PHOSPHATE 15 MM in SOD CHLORIDE 0.9% 250 ML IVPB ONE (09:00)
[2019-02-23] MEDS: morphine 2 MG INJ IV PRN ×3 (10:13→16:54)
--- NOTE | 2019-02-23 10:40 | PN ---
Date/Time of Note Date/Time of Note DATE: 02/23/19 TIME: 10:37 Assessment/Plan Lines/Catheters IV Catheter Type (from Nrsg): Saline Lock San in Place (from Nrsg): No Assessment/Plan Chief Complaint/Hosp Course 1. Abdominal pain s/p lap colostomy takedown 02/19. Improving -ice -pain control -IS -Continue drain -DC planning okay from surgical standpoint 2. Paralytic ileus, now with multiple bouts of diarrhea; + C. difficile -oob/ambulate -minimize narcotics -C. difficile treatment per ID 3. BMI 29 -eventual diet optimization -eventual exercise 4. HTN -diet/med optimization -weight loss encouraged 5. Hypoalbuminemia -nutritional optimization 6. Mild leukocytosis, probably reactive; resolved -monitor 7. DVT prophylaxis -lovenox -scds -oob/ambulate 8. Large ventral incisional hernia -eventual open repair with mesh Thank you. Patient seen and examined in collaboration with Dr. Waylon Capellan. Subjective 24 Hr Interval Summary Feels well. Tolerating solid diet. Diarrhea improved. WBC normalized. No fevers, chills, sob, congested cough, cp, palpitations, marquez, dizziness, nausea, vomiting, dysuria. Exam/Review of Systems Vital Signs Vitals Vital Signs Date Temp Pulse Resp B/P (MAP) Pulse Ox O2 O2 Flow FiO2 Time Delivery Rate 02/23/19 98.8 82 18 123/68 94 Room Air 07:22 (86) 02/19/19 6.0 17:40 Intake and Output 02/22/19 02/22/19 02/23/19 1515:00 23:00 07:00 IntakeIntake Total 480 ml 460 ml 300 ml OutputOutput Total 70 ml 46 ml 35 ml BalanceBalance 410 ml 414 ml 265 ml Exam Free Text/Dictation Constitutional: alert, oriented, obese; No distress Psych: nl mood/affect Head: normocephalic, atraumatic Eyes: nl conjunctiva, EOMI, PERRL; No icteric ENMT: nl external ears & nose, nl lips & teeth, mucosa pink and moist Neck: supple, non-tender; No jvd Respiratory: normal air movement; No congested cough, No labored breathing, No wheezing Cardiovascular: regular rate and rhythm; No edema Gastrointestinal: soft, distended (improving), min tender, other (SHEILA serosang; LLQ wound with dressing;); No rebound or guarding Musculoskeletal: nl extremities to inspection; No joint tenderness Extremities: normal pulses; No calf tenderness, No edema Neurological: nl mental status, nl speech, nl strength Skin: nl turgor; No rash or lesions, No diaphoresis Lymph: nl lymph nodes Results Result Diagram: 02/23/1942602/23/19 0427 KASSIDY HAMPTON NP Feb 23, 2019 10:40
[2019-02-23 15:33] VITALS: BP 126/76; PULSE 83; RESP 13
[2019-02-23 17:14] VITALS: BP 147/77; PULSE 80; RESP 16
[2019-02-23 20:08] VITALS: BP 137/72; PULSE 82; RESP 18
[2019-02-24] MEDS: HYDROCODONE/APAP (5/325) TAB PO PRN ×4 (01:01→21:24)
[2019-02-24] MEDS: METOCLOPRAMIDE 10 MG INJ IV SCH ×2 (04:58)
[2019-02-24 07:46] VITALS: BP 145/75; PULSE 81; RESP 18
--- NOTE | 2019-02-24 07:46 | CONS ---
Assessment/Plan Assessment/Plan Hospital Course (Demo Recall) 1) probable c.dif colitis pt seems to be responding (albeit a bit too quickly) to oral flagyl no increase in her nausea with it if necessary pt can receive po vanco will get KUB check IgG level in a.m. 02/24 - KUB was WNL IgG level was WNL formed stool in last BM continue with oral flagyl for a 10 da course (thru 03/03) d/c reglan as it might contribute to her cramping 2) s/p colostomy takedown surgical site ok 3) HTN Consultation Date/Type/Reason Admit Date/Time Feb 19, 2019 at 17:41 Initial Consult Date 02/23/19 Type of Consult ID Date/Time of Note DATE: 02/24/19 TIME: 07:43 24 HR Interval Summary Free Text/Dictation pt getting reglan ATC pt has some cramping but nausea is controlled last BM was formed no V, SOB abd pain is present but better Exam/Review of Systems Exam Vitals Vital Signs Date Temp Pulse Resp B/P (MAP) Pulse Ox O2 O2 Flow FiO2 Time Delivery Rate 02/23/19 99.3 82 18 137/72 95 Room Air 20:08 (93) Intake and Output 02/23/19 02/23/19 02/24/19 1515:00 23:00 07:00 IntakeIntake Total 855 ml 200 ml OutputOutput Total 40 ml 20 ml BalanceBalance 815 ml 180 ml Constitutional: alert, oriented Eyes: nl sclera ENMT: mucosa pink and moist Respiratory: clear to auscultation Cardiovascular: regular rate and rhythm Gastrointestinal: soft, other (less tender than yesterday and prior colostomy site has no redness around it) Results Result Diagram: 02/24/19 0443 02/24/19 044 Results 24hrs Laboratory Tests Test 02/23/19 17:25 02/24/19 04:43 White Blood Count 9.7 10.0 Red Blood Count 3.85 L 3.91 L Hemoglobin 12.0 12.2 Hematocrit 35.1 L 34.7 L Mean Corpuscular Volume 91.2 88.7 Mean Corpuscular Hemoglobin 31.2 31.2 Mean Corpuscular Hemoglobin Concent 34.2 35.2 Red Cell Distribution Width 13.2 13.0 Platelet Count 326 341 Mean Platelet Volume 8.6 8.8 Immature Granulocytes % 0.300 0.300 Neutrophils % 66.7 70.1 Lymphocytes % 17.3 16.0 Monocytes % 9.9 8.2 Eosinophils % 5.4 5.0 Basophils % 0.4 0.4 Nucleated Red Blood Cells % 0.0 0.0 Immature Granulocytes # 0.030 0.030 Neutrophils # 6.5 7.0 Lymphocytes # 1.7 1.6 Monocytes # 1.0 H 0.8 Eosinophils # 0.5 0.5 Basophils # 0.0 0.0 Nucleated Red Blood Cells # 0.0 0.0 Sodium Level 137 139 Potassium Level 4.1 3.7 Chloride Level 105 106 Carbon Dioxide Level 25 26 Anion Gap 7 7 Blood Urea Nitrogen 14 11 Creatinine 0.61 0.59 Est Glomerular Filtrat Rate mL/min > 60 > 60 Glucose Level 108 104 Calcium Level 8.3 L 8.6 Phosphorus Level 3.3 Magnesium Level 2.1 Immunoglobulin G 728 Medications Medication Current Medications Morphine Sulfate (morphine) 2 mg Q2H PRN IV breakthrough pain Last administe red on 02/23/19at 16:54; Admin Dose 2 MG; Start 02/19/19 at 17:30 Acetaminophen/ Hydrocodone Bitart ([place] (5/325)) 1 tab Q6H PRN PO PAIN LEVEL 6-10 Last administered on 02/24/19at 01:01; Admin Dose 1 TAB; Start 02/19/19 at 17:30 Acetaminophen (Tylenol Tab) 650 mg Q6H PRN PO MILD PAIN(1-3)OR ELEVATED TEMP; Start 02/19/19 at 17:30 Ibuprofen (Motrin) 600 mg Q6H PRN PO PAIN LEVEL 1-5; Start 02/19/19 at 17:30 Ondansetron HCl (Zofran Inj) 4 mg Q6H PRN IV NAUSEA AND/OR VOMITING Last administered on 02/21/19 05:00; Admin Dose 4 MG; Start 02/19/19 at 17:30 Fluoxetine HCl (Prozac) 10 mg DAILY PO Last administered on 02/23/19 08:06; Admin Dose 10 MG; Start 02/20/19 at 09:00 Metoclopramide HCl (Reglan) 5 mg Q6 IV Last administered on 02/23/19at 17:46; Admin Dose 5 MG; Start 02/21/19 at 12:00 Losartan Potassium (Cozaar) 50 mg BID PO Last administered on 02/23/19at 20:23; Admin Dose 50 MG; Start 02/21/19 at 21:00 Enoxaparin Sodium (Lovenox) 40 mg DAILY SC Last administered on 02/23/19 08:09; Admin Dose 40 MG; Start 02/23/19 at 09:00 Metronidazole (Flagyl) 500 mg QID PO Last administered on 02/23/19at 20:23; Admin Dose 500 MG; Start 02/23/19 at 09:00 Clonidine (Catapres) 0.05 mg TID PO ; Start 02/23/19 at 09:00 STEVE CHOU MD Feb 24, 2019 07:46
--- NOTE | 2019-02-24 08:14 | CONS ---
Assessment/Plan Assessment/Plan Assessment/Plan (Daily) 1. Post op colos closure, doing well now with less pain and bloat 2. C diff without sxs, rev with ID, can dc on flagyl x 7 more days, will write rx for her 3. BP control acceptable 4. Can dc if ok with surgery Consultation Date/Type/Reason Admit Date/Time Feb 19, 2019 at 17:41 Initial Consult Date Date/Time of Note DATE: 02/24/19 TIME: 08:12 Detailed Summary Respiratory: No shortness of breath Cardiovascular: No chest pain, No lightheadedness, No orthopenea, No pa lpitations Gastrointestinal: other (formed stool late yesterday, less abd bloating and no n or v) Genitourinary: no complaints Musculoskeletal: no complaints Exam/Review of Systems Exam Vitals Vital Signs Date Temp Pulse Resp B/P (MAP) Pulse Ox O2 O2 Flow FiO2 Time Delivery Rate 02/24/19 98.8 81 18 145/75 96 Room Air 07:46 (98) Intake and Output 02/23/19 02/23/19 02/24/19 1515:00 23:00 07:00 IntakeIntake Total 855 ml 200 ml OutputOutput Total 40 ml 20 ml BalanceBalance 815 ml 180 ml Neck: No jvd Respiratory: clear to auscultation Cardiovascular: regular rate and rhythm Gastrointestinal: soft Extremities: No edema, No tenderness Results Result Diagram: 02/24/19 0443 02/24/19 0443 Results 24hrs Laboratory Tests Test 02/23/19 17:25 02/24/19 04:43 White Blood Count 9.7 10.0 Red Blood Count 3.85 L 3.91 L Hemoglobin 12.0 12.2 Hematocrit 35.1 L 34.7 L Mean Corpuscular Volume 91.2 88.7 Mean Corpuscular Hemoglobin 31.2 31.2 Mean Corpuscular Hemoglobin Concent 34.2 35.2 Red Cell Distribution Width 13.2 13.0 Platelet Count 326 341 Mean Platelet Volume 8.6 8.8 Immature Granulocytes % 0.300 0.300 Neutrophils % 66.7 70.1 Lymphocytes % 17.3 16.0 Monocytes % 9.9 8.2 Eosinophils % 5.4 5.0 Basophils % 0.4 0.4 Nucleated Red Blood Cells % 0.0 0.0 Immature Granulocytes # 0.030 0.030 Neutrophils # 6.5 7.0 Lymphocytes # 1.7 1.6 Monocytes # 1.0 H 0.8 Eosinophils # 0.5 0.5 Basophils # 0.0 0.0 Nucleated Red Blood Cells # 0.0 0.0 Sodium Level 137 139 Potassium Level 4.1 3.7 Chloride Level 105 106 Carbon Dioxide Level 25 26 Anion Gap 7 7 Blood Urea Nitrogen 14 11 Creatinine 0.61 0.59 Est Glomerular Filtrat Rate mL/min > 60 > 60 Glucose Level 108 104 Calcium Level 8.3 L 8.6 Phosphorus Level 3.3 Magnesium Level 2.1 Immunoglobulin G 728 Medications Medication Current Medications Morphine Sulfate (morphine) 2 mg Q2H PRN IV breakthrough pain Last administered on 02/23/19 16:54; Admin Dose 2 MG; Start 02/19/19 at 17:30 Acetaminophen/ Hydrocodone Bitart ([place] (5/325)) 1 tab Q6H PRN PO PAIN LEVEL 6-10 Last administered on 02/24/19 01:01; Admin Dose 1 TAB; Start 02/19/19 at 17:30 Acetaminophen (Tylenol Tab) 650 mg Q6H PRN PO MILD PAIN(1-3)OR ELEVATED TEMP; Start 02/19/19 at 17:30 Ibuprofen (Motrin) 600 mg Q6H PRN PO PAIN LEVEL 1-5; Start 02/19/19 at 17:30 Ondansetron HCl (Zofran Inj) 4 mg Q6H PRN IV NAUSEA AND/OR VOMITING Last administered on 02/21/19 05:00; Admin Dose 4 MG; Start 02/19/19 at 17:30 Fluoxetine HCl (Prozac) 10 mg DAILY PO Last administered on 02/23/19 08:06; Admin Dose 10 MG; Start 02/20/19 at 09:00 Losartan Potassium (Cozaar) 50 mg BID PO Last administered on 02/23/19 20:23; Admin Dose 50 MG; Start 02/21/19 at 21:00 Enoxaparin Sodium (Lovenox) 40 mg DAILY SC Last administered on 02/23/19 08:09; Admin Dose 40 MG; Start 02/23/19 at 09:00 Metronidazole (Flagyl) 500 mg QID PO Last administered on 02/23/19 20:23; Admin Dose 500 MG; Start 02/23/19 at 09:00 Clonidine (Catapres) 0.05 mg TID PO ; Start 02/23/19 at 09:00 Simethicone (Mylicon) 80 mg TID PRN PO DISTENSION/GAS/BLOATING; Start 02/24/19 at 08:00 DANIELLE MYERS MD Feb 24, 2019 08:14
[2019-02-24] MEDS: metroNIDAZOLE 500 MG TAB PO SCH (09:35)
[2019-02-24] MEDS: FLUOXETINE 10 MG CAP PO SCH (09:35)
[2019-02-24] MEDS: ENOXAPARIN 40 MG/0.4 ML SYG SC SCH (09:35)
[2019-02-24] MEDS: LOSARTAN 50 MG TAB PO SCH ×2 (09:36→21:12)
--- NOTE | 2019-02-24 10:31 | PN ---
Date/Time of Note Date/Time of Note DATE: 02/24/19 TIME: 10:29 Assessment/Plan Lines/Catheters IV Catheter Type (from Nrsg): Saline Lock San in Place (from Nrsg): No Assessment/Plan Chief Complaint/Hosp Course 1. Abdominal pain s/p lap colostomy takedown 02/19. Improving -ice -pain control -IS -Continue drain -DC okay from surgical standpoint with home health for drain care and wound care (already ordered) per medical team. 2. Paralytic ileus, now with multiple bouts of diarrhea; + C. difficile -oob/ambulate -minimize narcotics -C. difficile treatment per ID 3. BMI 29 -eventual diet optimization -eventual exercise 4. HTN -diet/med optimization -weight loss encouraged 5. Hypoalbuminemia -nutritional optimization 6. Mild leukocytosis, probably reactive; resolved -monitor 7. DVT prophylaxis -lovenox -scds -oob/ambulate 8. Large ventral incisional hernia -eventual open repair with mesh Thank you. Patient seen and examined in collaboration with Dr. Waylon Capellan. Subjective 24 Hr Interval Summary Feels well. Abdominal pain improved. + Bowel function with formed stool. No fevers, chills, sob, congested cough, cp, palpitations, marquez, dizziness, nausea, vomiting, diarrhea, dysuria. Exam/Review of Systems Vital Signs Vitals Vital Signs Date Temp Pulse Resp B/P (MAP) Pulse Ox O2 O2 Flow FiO2 Time Delivery Rate 02/24/19 98.8 81 18 145/75 96 Room Air 07:46 (98) Intake and Output 02/23/19 02/23/19 02/24/19 1515:00 23:00 07:00 IntakeIntake Total 855 ml 200 ml OutputOutput Total 40 ml 20 ml BalanceBalance 815 ml 180 ml Exam Free Text/Dictation Constitutional: alert, oriented, obese; No distress Psych: nl mood/affect Head: normocephalic, atraumatic Eyes: nl conjunctiva, EOMI, PERRL; No icteric ENMT: nl external ears & nose, nl lips & teeth, mucosa pink and moist Neck: supple, non-tender; No jvd Respiratory: normal air movement; No congested cough, No labored breathing, No wheezing Cardiovascular: regular rate and rhythm; No edema Gastrointestinal: soft, distended (improving), min tender, other (SHEILA serosang; LLQ wound with dressing;); No rebound or guarding Musculoskeletal: nl extremities to inspection; No joint tenderness Extremities: normal pulses; No calf tenderness, No edema Neurological: nl mental status, nl speech, nl strength Skin: nl turgor; No rash or lesions, No diaphoresis Lymph: nl lymph nodes Results Result Diagram: 02/24/19 0443 02/24/19 0443 KASSIDY HAMPTON NP Feb 24, 2019 10:31
[2019-02-24] MEDS: VANCOMYCIN HCL 250 MG/5ML POSYG PO SCH ×3 (14:29→21:12)
[2019-02-24 15:18] VITALS: BP 133/91; PULSE 79; RESP 18
[2019-02-24 19:15] VITALS: BP 154/80; PULSE 68; RESP 18
[2019-02-25 02:05] VITALS: BP 164/86; PULSE 80; RESP 20
[2019-02-25 02:39] VITALS: BP 164/84; PULSE 75
[2019-02-25 06:31] VITALS: BP 128/84; PULSE 73; RESP 16
[2019-02-25 07:49] VITALS: BP 128/78; PULSE 70; RESP 18
--- NOTE | 2019-02-25 08:14 | CONS ---
Assessment/Plan Assessment/Plan Assessment/Plan (Daily) 1. Post op colostomy closure 2. C diff with now formed stools, flagyl changed to vanco (rx written for 7d) 3. BP controlled 4. Rev with surg, can dc today (drain remains) 5. BP controlled Consultation Date/Type/Reason Admit Date/Time Feb 19, 2019 at 17:41 Initial Consult Date Date/Time of Note DATE: 02/25/19 TIME: 08:12 Detailed Summary Respiratory: No cough, No shortness of breath Cardiovascular: No chest pain Gastrointestinal: pain (mild), other (stools are formed now) Genitourinary: no complaints Exam/Review of Systems Exam Vitals Vital Signs Date Temp Pulse Resp B/P (MAP) Pulse Ox O2 O2 Flow FiO2 Time Delivery Rate 02/25/19 98.6 70 18 128/78 99 Room Air 07:49 (95) Intake and Output 02/24/19 02/24/19 02/25/19 1515:00 23:00 07:00 IntakeIntake Total 840 ml 660 ml 240 ml OutputOutput Total 20 ml 0 ml 35 ml BalanceBalance 820 ml 660 ml 205 ml Neck: No jvd Respiratory: clear to auscultation Cardiovascular: regular rate and rhythm Gastrointestinal: soft, distended (slight), tender (mild, poorly localized) Results Result Diagram: 02/24/1944202/24/19442 Medications Medication Current Medications Morphine Sulfate (morphine) 2 mg Q2H PRN IV breakthrough pain Last administered on 02/23/19at 16:54; Admin Dose 2 MG; Start 02/19/19 at 17:30 Acetaminophen/ Hydrocodone Bitart ([place] (5/325)) 1 tab Q6H PRN PO PAIN LEVEL 6-10 Last administered on 02/24/19at 21:24; Admin Dose 1 TAB; Start 02/19/19 at 17:30 Acetaminophen (Tylenol Tab) 650 mg Q6H PRN PO MILD PAIN(1-3)OR ELEVATED TEMP; Start 02/19/19 at 17:30 Ibuprofen (Motrin) 600 mg Q6H PRN PO PAIN LEVEL 1-5; Start 02/19/19 at 17:30 Ondansetron HCl (Zofran Inj) 4 mg Q6H PRN IV NAUSEA AND/OR VOMITING Last admin istered on 8/4/19at 05:00; Admin Dose 4 MG; Start 02/19/19 at 17:30 Fluoxetine HCl (Prozac) 10 mg DAILY PO Last administered on 02/24/19 09:35; Admin Dose 10 MG; Start 02/20/19 at 09:00 Losartan Potassium (Cozaar) 50 mg BID PO Last administered on 02/24/19 21:12; Admin Dose 50 MG; Start 02/21/19 at 21:00 Enoxaparin Sodium (Lovenox) 40 mg DAILY SC Last administered on 02/24/19 09:35; Admin Dose 40 MG; Start 02/23/19 at 09:00 Simethicone (Mylicon) 80 mg TID PRN PO DISTENSION/GAS/BLOATING; Start 02/24/19 at 08:00 Vancomycin HCl (Vancomycin Oral Syringe) 125 mg QID PO Last administered on 02/24/19 21:12; Admin Dose 125 MG; Start 02/24/19 at 13:00 Clonidine (Catapres) 0.1 mg Q6H PRN PO ELEVATED SYSTOLIC BP Last administered on 02/25/19at 02:55; Admin Dose 0.1 MG; Start 02/25/19 at 02:45 DANIELLE MYERS MD Feb 25, 2019 08:14
--- NOTE | 2019-02-25 08:44 | CONS ---
Assessment/Plan Assessment/Plan Hospital Course (Demo Recall) 1) probable c.dif colitis pt seems to be responding (albeit a bit too quickly) to oral flagyl no increase in her nausea with it if necessary pt can receive po vanco will get KUB check IgG level in a.m. 02/24 - KUB was WNL IgG level was WNL formed stool in last BM continue with oral flagyl for a 10 da course (thru 03/03) d/c reglan as it might contribute to her cramping 02/25 - continue oral vanco 125mg QID thru 03/03 case management referral made for help in finding pharmacy that can fill liquid form of oral vanco without too much cost to pt ([facility]?) 2) s/p colostomy takedown surgical site ok 3) HTN Consultation Date/Type/Reason Admit Date/Time Feb 19, 2019 at 17:41 Initial Consult Date 02/23/19 Type of Consult ID Date/Time of Note DATE: 02/25/19 TIME: 08:42 24 HR Interval Summary Free Text/Dictation pt was switched to oral vanco yesterday due to return of loose stools stools are now soft less abd pain no N, V Exam/Review of Systems Exam Vitals Vital Signs Date Temp Pulse Resp B/P (MAP) Pulse Ox O2 O2 Flow FiO2 Time Delivery Rate 02/25/19 98.6 70 18 128/78 99 Room Air 07:49 (95) Intake and Output 02/24/19 02/24/19 02/25/19 1515:00 23:00 07:00 IntakeIntake Total 840 ml 660 ml 240 ml OutputOutput Total 20 ml 0 ml 35 ml BalanceBalance 820 ml 660 ml 205 ml Constitutional: alert, oriented ENMT: mucosa pink and moist Respiratory: clear to auscultation Cardiovascular: regular rate and rhythm Gastrointestinal: soft, other (less tender than yesterday) Results Result Diagram: 02/24/19 0443 02/24/19442 Medications Medication Current Medications Morphine Sulfate (morphine) 2 mg Q2H PRN IV breakthrough pain Last administer ed on 02/23/19at 16:54; Admin Dose 2 MG; Start 02/19/19 at 17:30 Acetaminophen/ Hydrocodone Bitart ([place] (5/325)) 1 tab Q6H PRN PO PAIN LEVEL 6-10 Last administered on 02/24/19 21:24; Admin Dose 1 TAB; Start 02/19/19 at 17:30 Acetaminophen (Tylenol Tab) 650 mg Q6H PRN PO MILD PAIN(1-3)OR ELEVATED TEMP; Start 02/19/19 at 17:30 Ibuprofen (Motrin) 600 mg Q6H PRN PO PAIN LEVEL 1-5; Start 02/19/19 at 17:30 Ondansetron HCl (Zofran Inj) 4 mg Q6H PRN IV NAUSEA AND/OR VOMITING Last administered on 02/21/19 05:00; Admin Dose 4 MG; Start 02/19/19 at 17:30 Fluoxetine HCl (Prozac) 10 mg DAILY PO Last administered on 02/24/19 09:35; Admin Dose 10 MG; Start 02/20/19 at 09:00 Losartan Potassium (Cozaar) 50 mg BID PO Last administered on 02/24/19 21:12; Admin Dose 50 MG; Start 02/21/19 at 21:00 Enoxaparin Sodium (Lovenox) 40 mg DAILY SC Last administered on 02/24/19 09:35; Admin Dose 40 MG; Start 02/23/19 at 09:00 Simethicone (Mylicon) 80 mg TID PRN PO DISTENSION/GAS/BLOATING; Start 02/24/19 at 08:00 Vancomycin HCl (Vancomycin Oral Syringe) 125 mg QID PO Last administered on 02/24/19 21:12; Admin Dose 125 MG; Start 02/24/19 at 13:00 Clonidine (Catapres) 0.1 mg Q6H PRN PO ELEVATED SYSTOLIC BP Last administered on 02/25/19 02:55; Admin Dose 0.1 MG; Start 02/25/19 at 02:45 STEVE CHOU MD Feb 25, 2019 08:44
[2019-02-25] MEDS: ENOXAPARIN 40 MG/0.4 ML SYG SC SCH (09:00)
[2019-02-25] MEDS: VANCOMYCIN HCL 250 MG/5ML POSYG PO SCH ×3 (09:34→16:34)
[2019-02-25] MEDS: LOSARTAN 50 MG TAB PO SCH (09:34)
[2019-02-25] MEDS: FLUOXETINE 10 MG CAP PO SCH (09:34)
[2019-02-25] MEDS: HYDROCODONE/APAP (5/325) TAB PO PRN ×2 (09:42→16:36)
[2019-02-25 15:43] VITALS: BP 124/76; PULSE 72; RESP 18
--- NOTE | 2019-02-25 17:02 | PDOCDIS ---
Discharge Instructions DIAGNOSIS Discharge Diagnosis 1. Status post colostomy reversal 2. C. difficile colitis on vancomycin 3. BMI 29 4. Hypertension 5. History of perforated diverticulitis status post colostomy 6. Current midline incisional large hernia CONDITION [id number] Patient Condition: [address] Good HOME CARE INSTRUCTIONS: [id number] Diet Instructions: [id number] Regular ACTIVITY: [id number] Activity Restrictions: [id number] Slowly Increase Activity Rest between Activity Avoid heavy lifting Do not operate Machinery Do not operate Power Tool Avoid Heavy Housework [id number] Bathing Restrictions: [address] Shower [address] Activity Restrictions [address] nt: than 20 pounds for 2 months. FOLLOW UP/APPOINTMENTS Follow-up Plan Surgeon in 1 week call to make an appointment Primary in 1 to 2 weeks REFERRALS [address] Agency Name and Phone [address], Number: [phone], fax [phone] [address] Referring Provider: MANUEL Shaffer MD OTHER ORDERS: Other Orders: 1. No heavy lifting more than 20 pounds for 2 months. 2. Do not operate heavy machinery or drive while on narcotics or any significant pain. 3. May shower. Cover the drain site. 4. Ice pack to surgical sites, 10-20 times per day, 20 minutes each for pain or swelling. 5. Pain control: -Tylenol 500 mg orally every 6 hours for pain. -Ibuprofen 400 to 800 mg orally every 6 hours as well. -Stagger the medication so that they are 3 hours apart. -Use narcotics only if above measures are not sufficient for pain control. 6. Follow up: -Surgeon in 2 week s. Please call the office for an appointment at [phone] Primary in 2 to 4 weeks. 7. Please call the office with signs of infection, concern, or complications. 8. Sexual activity okay as long as you are comfortable and it is not [place] 9. Drain care per nursing instructions. Milk the drain several times per day as needed. Record output on a sheet of paper and bring to office. 10. Left lower abdomen wound care with iodoform packing daily between the britta. May irrigate the wound with saline or 1/40 Dakin's between iodoform packing. Cover with dry gauze. Repeat daily. MANUEL PISANO MD Feb 25, 2019 17:02
--- NOTE | 2019-02-25 17:09 | DS ---
Date/Time of Note Date/Time of Note DATE: 02/25/19 TIME: 17:05 Discharge Summary Admission/Discharge Info Admit Date/Time Feb 19, 2019 at 17:41 Discharge Date/Time February 25; 5pm Discharge Diagnosis 1. Status post colostomy reversal 2. C. difficile colitis on vancomycin 3. BMI 29 4. Hypertension 5. History of perforated diverticulitis status post colostomy 6. Current midline incisional large hernia Patient Condition: Good Consults Dr. Danielle Chou Procedures Laparoscopic colostomy reversal with splenic mobilization Hx of Present Illness 69-year-old female with comorbidities who had perforated diverticulitis over a year ago at [place]. She is here for colostomy reversal that went uneventfully. Postoperatively she developed C. difficile colitis however was able to tolerate diet, become ambulatory, have bowel function. She was started on vancomycin. Her pain continued to improve. She is stable to be discharged home and follow-up as outpatient Hospital Course 1. Abdominal pain s/p lap colostomy takedown 02/19. Improving -ice -pain control -IS 2. Paralytic ileus, now with multiple bouts of diarrhea -oob/ambulate -minimize narcotics -cdiff pending (doubt) 3. BMI 29 -eventual diet optimization -eventual exercise 4. HTN -diet/med optimization -weight loss encouraged 5. Hypoalbuminemia -nutritional optimization 6. Mild leukocytosis, probably reactive -monitor 7. DVT prophylaxis -lovenox -scds -oob/ambulate 8. Large ventral incisional hernia -eventual open repair with mesh Thank you, Home Meds Active Scripts Acetaminophen* (Tylenol*) 325 Mg Tablet, 650 MG PO Q6H PRN for MILD PAIN(1-3)OR ELEVATED TEMP for 30 Days, TAB Prov:DANIELLE MYERS MD 02/24/19 Metronidazole* (Flagyl*) 500 Mg Tablet, 500 MG PO QID for 7 Days, TAB Prov:DANIELLE MYERS MD 02/24/19 Reported Medications Fluoxetine Hcl* (Prozac*) 10 Mg Capsule, 10 MG PO DAILY, CAP 02/19/19 Losartan-Hydrochlorothiazide (Losartan-HCTZ) 50-12.5 Mg Tab, 2 TAB ORAL DAILY 02/19/19 Follow-up Plan Surgeon in 1 week call to make an appointment Primary in 1 to 2 weeks Primary Care Provider Not On Staff Doctor Time spent on discharge: > 30 minutes Copies To: CC: STEVE CHOU MD; DANIELLE MYERS MD ; MANUEL PISANO MD Feb 25, 2019 17:09
== END 2019-02-25 19:20 | disposition home health service (06) | DRG 330 ==
LOC: SDS 10:44 → REC 17:41 → SDS 17:41 → MS1 19:45
PROVIDERS: ADMIT Surgery; ATTEND Surgery
PROC: 0WQF4ZZ Repair Abdominal Wall, Percutaneous Endoscopic Approach (ICD-10-PCS; 2019-02-19)
PROC: 0DBU4ZZ Excision of Omentum, Percutaneous Endoscopic Approach (ICD-10-PCS; 2019-02-19)
PROC: 0DBG4ZZ Excision of Left Large Intestine, Percutaneous Endoscopic Approach (ICD-10-PCS; principal; 2019-02-19 13:00)
DX: Z43.3 Encounter for attention to colostomy (principal); K56.0 Paralytic ileus; A04.72 Enterocolitis due to Clostridium difficile, not specified as recurrent
CPT/HCPCS: 74018; 80048; 80053; 82784; 83735; 84100; 85025; 87075; 87086; 88304; J0690; J1170; J1200; J1650; J2175; J2270; J2405; J2710; J2765; J3010; J7030; J7050